=== PATIENT | male | born 1970 ===

== ENCOUNTER 2021-03-29 13:18 | Emergency (ER) | payer OTHER ==
[~2021-03-29] VITALS: Ht 152.4 cm; Wt 61.2 kg
[2021-03-29] MEDS ORDERED: IBUP600 PO (15:02)
== END 2021-03-29 15:12 | disposition home or self-care (01) ==
LOC: ER 13:18
DX: S02.2XXA Fracture of nasal bones, initial encounter for closed fracture (principal); S01.21XA Laceration without foreign body of nose, initial encounter; V57.5XXA Driver of pick-up truck or van injured in collision with fixed or stationary object in traffic accident, initial encounter; Y92.410 Unspecified street and highway as the place of occurrence of the external cause
CPT/HCPCS: 70450; 70486; 71045; 73030; 94760; 99284-25

== ENCOUNTER 2021-04-11 10:15 | Emergency (ER) | payer OTHER ==
[~2021-04-11] VITALS: Ht 152.4 cm; Wt 49.9 kg
[~2021-04-11 10:15] MED LIST: IBUP600 PO
== END 2021-04-11 10:45 | disposition home or self-care (01) ==
LOC: ER 10:15
DX: Z02.79 Encounter for issue of other medical certificate (principal)
CPT/HCPCS: 99281

== ENCOUNTER 2023-01-25 18:44 | Inpatient (IN) | payer SELFPAY ==
[~2023-01-25] VITALS: Ht 152.4 cm; Wt 50.6 kg
[~2023-01-25 18:44] MED LIST changes: -HUMALOG KW100 UNIT/1 SC; -INSULANPEN SC; -METF500C PO
[2023-01-25 20:33] LABS: BASOPHILS ABSOLUTE AUTO 0.02 K/mm3 (0.00-0.23); BASOPHILS PERCENT AUTO 0 % (0-2); EOSINOPHILS PERCENT AUTO 0 % (0-6); Hematocrit 41.7 % (37.0-53.0); Hemoglobin 14.7 g/dL (13.5-17.5); IMMATURE GRAN ABSOLUTE AUTO 0.05 K/mm3 (0.00-0.10); IMMATURE GRAN PERCENT AUTO 0 % (0-1); LYMPHOCYTES ABSOLUTE AUTO 1.03 K/mm3 (0.84-5.20); LYMPHOCYTES PERCENT AUTO 9 % (21-46); MONOCYTES ABSOLUTE AUTO 0.73 K/mm3 (0.16-1.47); MONOCYTES PERCENT AUTO 6 % (4-13); Mean Corpuscular HGB 29.1 pg (26.0-34.0); Mean Corpuscular HGB Conc 35.3 g/dL (31.5-36.5); Mean Corpuscular Volume 83 fL (80-100); Mean Platelet Volume 12.6 fL (9.1-12.4); NEUTROPHILS ABSOLUTE AUTO 9.85 K/mm3 (1.96-9.15); NEUTROPHILS PERCENT AUTO 84 % (41-73); Platelet Count 158 K/mm3 (150-400); RDW Coefficient Variation 11.6 % (11.7-14.2); RDW Standard Deviation 34.5 fL (35.1-46.3); Red Blood Cell Count 5.05 M/mm3 (4.30-5.90); White Blood Cell Count 11.68 K/mm3 (4.00-11.30)
[2023-01-25 20:38] LABS: Base Excess Venous 0 mmol/L; Bicarbonate Venous 23.9 mmol/L (24.0-30.0); PCO2 Venous 43.5 mmHg (38-42); pH Blood Venous 7.37 (7.34-7.37)
[2023-01-25 20:52] LABS: Beta-hydroxybutyrate 3.1 mg/dL (0.2-2.8)
[2023-01-25 20:59] LABS: Albumin, Blood 4.3 g/dL (3.4-5.0); Albumin/Globulin Ratio 1.1 (0.8-1.8); Bun/Creatinine Ratio 27.1 (12.0-20.0); Calcium, Blood 8.8 mg/dL (8.5-10.1); Creatinine, Blood 2.03 mg/dL (0.60-1.20); Globulin, Blood 3.9 g/dL (2.2-4.0); Potassium, Blood 4.1 mmol/L (3.5-5.5); Total Protein, Blood 8.2 g/dL (6.4-8.2)
[2023-01-25 21:52] LABS: Source, Urine Clean Catch
[2023-01-25 22:16] LABS: Bilirubin, Urine Neg (Neg); Blood, Urine Neg (Neg); Glucose Qualitative, Urine 4+ (Neg); Ketones, Urine Neg (Neg); Leukocyte Esterase, Urine Neg (Neg); Nitrite, Urine Neg (Neg); Protein, Urine 2+ (Neg); Specific Gravity, Urine 1.015 (1.003-1.022); Urobilinogen, Urine NORM (Normal)
[2023-01-25 22:20] LABS: Glucose, Blood 547 mg/dL (70-99)
[2023-01-25 23:13] LABS: Appearance, Urine Clear (Clear); Color, Urine Yellow (P-Yellow)
[2023-01-25 23:13] LABS: Magnesium, Blood 2.5 mg/dL (1.6-2.4)
[2023-01-25 23:20] LABS: Bacteria Rare /hpf; Hyaline Casts 0-2 /lpf (0-2); Red Blood Cells, Urine 0-2 /hpf (0-2); Squamous Epithelial Cells Rare /hpf (Few); White Blood Cells, Urine 0-2 /hpf (0-5)
[2023-01-26 00:23] VITALS: BP 131/73
[2023-01-26 06:06] LABS: BASOPHILS ABSOLUTE AUTO 0.04 K/mm3 (0.00-0.23); BASOPHILS PERCENT AUTO 0 % (0-2); EOSINOPHILS ABSOLUTE AUTO 0.04 K/mm3 (0.00-0.68); EOSINOPHILS PERCENT AUTO 0 % (0-6); Hematocrit 37.4 % (37.0-53.0); Hemoglobin 13.2 g/dL (13.5-17.5); IMMATURE GRAN ABSOLUTE AUTO 0.05 K/mm3 (0.00-0.10); IMMATURE GRAN PERCENT AUTO 0 % (0-1); LYMPHOCYTES ABSOLUTE AUTO 2.74 K/mm3 (0.84-5.20); LYMPHOCYTES PERCENT AUTO 23 % (21-46); MONOCYTES ABSOLUTE AUTO 1.39 K/mm3 (0.16-1.47); MONOCYTES PERCENT AUTO 12 % (4-13); Mean Corpuscular HGB 29.4 pg (26.0-34.0); Mean Corpuscular HGB Conc 35.3 g/dL (31.5-36.5); Mean Corpuscular Volume 83 fL (80-100); NEUTROPHILS ABSOLUTE AUTO 7.73 K/mm3 (1.96-9.15); NEUTROPHILS PERCENT AUTO 65 % (41-73); Platelet Count 142 K/mm3 (150-400); RDW Coefficient Variation 11.6 % (11.7-14.2); RDW Standard Deviation 34.8 fL (35.1-46.3); Red Blood Cell Count 4.49 M/mm3 (4.30-5.90); White Blood Cell Count 11.99 K/mm3 (4.00-11.30)
[2023-01-26 06:27] LABS: Albumin, Blood 3.6 g/dL (3.4-5.0); Albumin/Globulin Ratio 1.1 (0.8-1.8); Bilirubin, Total 1.1 mg/dL (0.1-1.0); Bun/Creatinine Ratio 51.7 (12.0-20.0); Calcium, Blood 8.5 mg/dL (8.5-10.1); Creatinine, Blood 0.83 mg/dL (0.60-1.20); Globulin, Blood 3.2 g/dL (2.2-4.0); Potassium, Blood 3.3 mmol/L (3.5-5.5); Total Protein, Blood 6.8 g/dL (6.4-8.2)
[2023-01-26 07:33] VITALS: BP 98/68
--- NOTE | 2023-01-26 08:07 | NUR ---
CLLED DR WADE RE CBG 113. HOLD LONG ACTING INS. WILL GIVE PM ONLY, WILL CHANGE ORDERS. WILL ADD LOW S/S SHORT ACTING. WILL ADVISE IF GIVE LACTATE RINGERS
[2023-01-26 12:57] LABS: Bun/Creatinine Ratio 56.7 (12.0-20.0); Calcium, Blood 8.7 mg/dL (8.5-10.1); Creatinine, Blood 0.62 mg/dL (0.60-1.20); Potassium, Blood 3.8 mmol/L (3.5-5.5)
[2023-01-26 15:02] VITALS: BP 124/73
[2023-01-26 19:27] VITALS: BP 107/77
--- NOTE | 2023-01-26 19:36 | NUR ---
PT QUITE PLEASANT BROKEN [place]. USE BAG TESTER NEEDED. DENIES PAIN, H/R REG, NO MURMUR NOTED. NO TELE. NO EDEMA NOTED. LUNGS CLEAR, RESP EASY, UNLABORED, ON R/A. PT INDEPENDANT TO BATHROOM. STATES BM TODAY. VOIDS INDEPENDANTLY. BLOOD SUGARS 209 THIS DINNER. S/S STARTED TODAY. DR IN TO SEE TODAY. SPEAKS FLUENT MALTESE. STATES WILL BE BRINGING HIM SOME DIABETIC INFO TOMORROW. NO OTHER NEW CONCERNS NOTED. BED IN LOW POSITION, CALL LITE IN REACH, CALLS APPROP
[2023-01-27 05:10] VITALS: BP 124/75
[2023-01-27 06:19] LABS: BASOPHILS ABSOLUTE AUTO 0.05 K/mm3 (0.00-0.23); BASOPHILS PERCENT AUTO 1 % (0-2); EOSINOPHILS PERCENT AUTO 1 % (0-6); Hematocrit 35.7 % (37.0-53.0); Hemoglobin 12.1 g/dL (13.5-17.5); IMMATURE GRAN ABSOLUTE AUTO 0.03 K/mm3 (0.00-0.10); IMMATURE GRAN PERCENT AUTO 0 % (0-1); LYMPHOCYTES ABSOLUTE AUTO 3.04 K/mm3 (0.84-5.20); LYMPHOCYTES PERCENT AUTO 40 % (21-46); MONOCYTES ABSOLUTE AUTO 0.86 K/mm3 (0.16-1.47); MONOCYTES PERCENT AUTO 11 % (4-13); Mean Corpuscular HGB 29.4 pg (26.0-34.0); Mean Corpuscular HGB Conc 33.9 g/dL (31.5-36.5); Mean Corpuscular Volume 87 fL (80-100); Mean Platelet Volume 12.3 fL (9.1-12.4); NEUTROPHILS ABSOLUTE AUTO 3.54 K/mm3 (1.96-9.15); NEUTROPHILS PERCENT AUTO 46 % (41-73); Platelet Count 121 K/mm3 (150-400); RDW Coefficient Variation 11.8 % (11.7-14.2); RDW Standard Deviation 37.4 fL (35.1-46.3); Red Blood Cell Count 4.11 M/mm3 (4.30-5.90); White Blood Cell Count 7.62 K/mm3 (4.00-11.30)
[2023-01-27 06:46] LABS: Albumin, Blood 3.2 g/dL (3.4-5.0); Bilirubin, Total 0.8 mg/dL (0.1-1.0); Bun/Creatinine Ratio 41.3 (12.0-20.0); Calcium, Blood 9.1 mg/dL (8.5-10.1); Creatinine, Blood 0.53 mg/dL (0.60-1.20); Globulin, Blood 3.3 g/dL (2.2-4.0); Potassium, Blood 4.1 mmol/L (3.5-5.5); Total Protein, Blood 6.5 g/dL (6.4-8.2)
[2023-01-27 07:55] VITALS: BP 116/80
--- NOTE | 2023-01-27 09:00 | NUR ---
A/O X3. PLEASANT COOP, CZECH SPEAKING, WITH BROKEN ESTONIAN. TRANSLATER PHONE IN USE APPROP. H/R REG, NO MURMUR NOTED. NO TELE. LUNGS CLEAR, RESP EASY, UNLABORED. ON R.A. BT X4 LAST BM YEST PER PT. VOIDS INDEPENDANT IN BATHROOM, DENIES PAIN. BED IN LOW POSITION, CALL LITE IN REACH, CALLS APPROP
--- NOTE | 2023-01-27 11:00 | NUR ---
PT A/O PLEASANT BROKEN GERMAN WITH GOOD UGANDAN. USING INTERPRETOR PHONE FOR ASSESSMENTS AND NEW EDUCATION. EDUCATED ON TAKING BLOOD SUGARS, AND WITH GIVING INSULIN. PT GAVE OWN INSULIN THIS AM AND TOOK OWN CBF AND GAVE OWN INSULIN FOR LUNCH. THIS IS A LONG PROCESS FOR LEARNING, AND HE NEEDS CONSIDERABLE HELP STEP BY STEP. I AM NOT CONFIDENT HE IS ABLE TO COME TO APPROP INSULIN UNITS NEEDED FOR A GIVEN CBG AT THIS TIME. MUCH PRACTICE AND HE IS SLOW TO GRASP. I BELIEVE HE WOULD BENEFIT FROM 1 ON 1 DIRECT EDUCATION WITH U[place]AND[place] SPEAKING EDUCATOR.
--- NOTE | 2023-01-27 16:36 | NUR ---
PT PLEASANT TODAY. SPENT LARGE AMOUNT OF TIME EDUCATING CBG AND INSULIN ADMIN. NOT CONFIDENT HE GRASPS PROCESS OF S/S AND HOW TO COME TO APPROP INSULIN DOSE. NOT ABLE TO LOCATE APPROP S/S SCALE IN [place] FOR HIS USE. CALLS IN TO CARE MANAGEMENT THROUGH FOR ASSISTANCE. NO OTHER NEW CONCERNS NOTED. BED IN LOW POSITION, CALLLITE IN REACH, CALLS APPROP
[2023-01-27 16:44] VITALS: BP 130/89
[2023-01-27 20:03] VITALS: BP 120/72
[2023-01-28 04:16] VITALS: BP 109/60
[2023-01-28 04:59] LABS: BASOPHILS ABSOLUTE AUTO 0.05 K/mm3 (0.00-0.23); BASOPHILS PERCENT AUTO 1 % (0-2); EOSINOPHILS ABSOLUTE AUTO 0.15 K/mm3 (0.00-0.68); EOSINOPHILS PERCENT AUTO 2 % (0-6); Hematocrit 38.7 % (37.0-53.0); Hemoglobin 13.2 g/dL (13.5-17.5); IMMATURE GRAN ABSOLUTE AUTO 0.01 K/mm3 (0.00-0.10); IMMATURE GRAN PERCENT AUTO 0 % (0-1); LYMPHOCYTES PERCENT AUTO 50 % (21-46); MONOCYTES ABSOLUTE AUTO 0.82 K/mm3 (0.16-1.47); MONOCYTES PERCENT AUTO 12 % (4-13); Mean Corpuscular HGB 29.1 pg (26.0-34.0); Mean Corpuscular HGB Conc 34.1 g/dL (31.5-36.5); Mean Corpuscular Volume 85 fL (80-100); Mean Platelet Volume 12.4 fL (9.1-12.4); NEUTROPHILS ABSOLUTE AUTO 2.48 K/mm3 (1.96-9.15); NEUTROPHILS PERCENT AUTO 36 % (41-73); Platelet Count 131 K/mm3 (150-400); RDW Coefficient Variation 11.3 % (11.7-14.2); RDW Standard Deviation 35.1 fL (35.1-46.3); Red Blood Cell Count 4.54 M/mm3 (4.30-5.90); White Blood Cell Count 7.01 K/mm3 (4.00-11.30)
--- NOTE | 2023-01-28 05:00 | NUR ---
SHIFT SUMMARY PT SITTING UP IN BED DURING BEDSIDE REPORT- PT JAPANESE SPEAKING- BELGIAN/JAPANESE CANCER PROGRAM COORDINATOR USED TO EDUCATE PT RE: DIABETIES EDUCATED, DISCUSSED UNDERSTANDING CARBOHYDRATES, MONITORING CBGS, AND INSULIN AND PT GAVE SELF INSULIN - PT HAD MANY QUESTIONS AND WAS ABLE TO REPEAT WITH THE CANCER PROGRAM COORDINATOR WHAT HE HAS LEARNED- INFORMATION PRINTED FROM THE CDC IN JAPANESE; WHAT IS DIABETES?, MONITORING YOUR BLOOD SUGAR, AND DEABETES MEAL PLANNNING- CALL LIGHT WITHIN REACH, BED LOW POSITION
[2023-01-28 05:26] LABS: Bun/Creatinine Ratio 37.5 (12.0-20.0); Calcium, Blood 9.3 mg/dL (8.5-10.1); Creatinine, Blood 0.51 mg/dL (0.60-1.20); Potassium, Blood 3.7 mmol/L (3.5-5.5)
[2023-01-28 07:44] VITALS: BP 122/77
[2023-01-28] MEDS ORDERED: INSULANPEN SC ×2 (13:58)
[2023-01-28] MEDS ORDERED: HUMALOG KW100 UNIT/1 SC ×2 (13:59)
[2023-01-28] MEDS ORDERED: METF500C PO ×2 (14:23)
--- NOTE | 2023-01-28 15:34 | NUR ---
DISCHARGE: PT D/C @ 1520 VIA AUTOMOBILE WITH [employer] SPRAYER. PROVIDED PT WITH DC INSTRUCTIONS AND ASKED IF HE UNDERSTOOD HOW TO ADMINISTER INSULIN TO SELF AND CHECK BS. EXPLAINED TO PT HOW TO TAKE BS AND ADMINISTER INSULIN TO SELF AND DIRECTIONS TO EDWIN TO OBTAIN MEDICATIONS. EDUCATION PRINTED IN BULGARIAN FOR PT TO READ. IV'S REMOVED BY RICHMOND COHEN W/O COMPLICATIONS.
== END 2023-01-28 15:25 | disposition home or self-care (01) | DRG 642 ==
LOC: ER 18:44 → MEDS 18:45 → ER 01-26 00:09 → MEDS 01-26 00:15
PROVIDERS: Family Medicine; Student in an Organized Health Care Education/Training Program; ADMIT Internal Medicine
DX: E72.51 Non-ketotic hyperglycinemia (principal); N17.9 Acute kidney failure, unspecified; E87.1 Hypo-osmolality and hyponatremia; E83.41 Hypermagnesemia; I95.9 Hypotension, unspecified; E87.6 Hypokalemia
CPT/HCPCS: 36415; 71045; 76770; 80048; 80053; 81001; 82010; 82803; 82947; 83605; 83690; 83735; 83930; 85025; 93005; 93010; 96360; 96361; 96372; 99285-25; A9270; G0378; J1650; J1815; J7030

== ENCOUNTER → 2023-01-25 | Outpatient (CLI) | payer SELFPAY ==
[~2023-01-25] MED LIST changes: +HUMALOG KW100 UNIT/1 SC; +INSULANPEN SC; +METF500C PO
[2023-01-25 18:02] LABS: BASOPHILS ABSOLUTE AUTO 0.04 K/mm3 (0.00-0.23); BASOPHILS PERCENT AUTO 0 % (0-2); EOSINOPHILS PERCENT AUTO 0 % (0-6); Hematocrit 46.6 % (37.0-53.0); Hemoglobin 17.1 g/dL (13.5-17.5); IMMATURE GRAN ABSOLUTE AUTO 0.09 K/mm3 (0.00-0.10); IMMATURE GRAN PERCENT AUTO 1 % (0-1); LYMPHOCYTES ABSOLUTE AUTO 0.83 K/mm3 (0.84-5.20); LYMPHOCYTES PERCENT AUTO 7 % (21-46); MONOCYTES ABSOLUTE AUTO 0.88 K/mm3 (0.16-1.47); MONOCYTES PERCENT AUTO 7 % (4-13); Mean Corpuscular HGB 29.9 pg (26.0-34.0); Mean Corpuscular HGB Conc 36.7 g/dL (31.5-36.5); Mean Corpuscular Volume 82 fL (80-100); Mean Platelet Volume 12.4 fL (9.1-12.4); NEUTROPHILS ABSOLUTE AUTO 10.03 K/mm3 (1.96-9.15); NEUTROPHILS PERCENT AUTO 85 % (41-73); Platelet Count 176 K/mm3 (150-400); RDW Coefficient Variation 11.8 % (11.7-14.2); RDW Standard Deviation 34.1 fL (35.1-46.3); Red Blood Cell Count 5.72 M/mm3 (4.30-5.90); White Blood Cell Count 11.87 K/mm3 (4.00-11.30)
[2023-01-25 18:17] LABS: Albumin, Blood 5.3 g/dL (3.4-5.0); Albumin/Globulin Ratio 1.1 (0.8-1.8); Bilirubin, Total 1.2 mg/dL (0.1-1.0); Calcium, Blood 9.9 mg/dL (8.5-10.1); Creatinine, Blood 3.68 mg/dL (0.60-1.20); Globulin, Blood 4.8 g/dL (2.2-4.0); Potassium, Blood 4.3 mmol/L (3.5-5.5); Total Protein, Blood 10.1 g/dL (6.4-8.2)
== END | disposition home or self-care (01) ==
LOC: LAB SHORT 17:57 → LAB 17:57
PROVIDERS: Chiropractor
DX: R73.9 Hyperglycemia, unspecified (principal); R00.0 Tachycardia, unspecified
CPT/HCPCS: 80053; 83036; 84484; 85025